=== PATIENT | female | born 1985 | race Asian ===

== ENCOUNTER → 2016-08-20 | Day surgery (SDC) | payer OTHER ==
[~2016-08-20] VITALS: Ht 160 cm; Wt 76.2 kg
[~2016-08-20] MED LIST: IODINE STRONG SOLN 15 ML BTL As Ordered ONE; KETOROLAC 60 MG/2 ML VIAL (J1885) As Ordered ONE; LIDOCAINE 2% INJ 100 MG/5 ML SDV (FOR ANES.) As Ordered ONE; LIDOCAINE W/EPINEPHRINE 1% 20ML VIAL As Ordered ONE; LR 1,000 ML IV SCH; MIDAZOLAM INJ 2 MG/2 ML VIAL (J2250) As Ordered ONE; ONDANSETRON 4MG/2ML VIAL (J2405) As Ordered ONE; PROPOFOL 200 MG/20 ML VIAL As Ordered ONE; dexameTHASONE 4 MG/ML 1ML VIAL (J1100) As Ordered ONE; fentaNYL 100 MCG/2 ML INJECTION (J3010) As Ordered ONE; trinessa PO
[2016-08-20 10:36] LABS: CONTROL LINE HCG INT CTR LINE PRESENT
[2016-08-20 13:47] VITALS: BP 117/72
--- NOTE | 2016-08-20 18:11 | RO ---
DATE OF PROCEDURE: 08/20/2016 PREPROCEDURE DIAGNOSIS: High-grade squamous intraepithelial lesion (HGSIL) and low-grade squamous intraepithelial lesion (LGSIL) of the cervix. POSTPROCEDURE DIAGNOSIS: High-grade squamous intraepithelial lesion (HGSIL) and low-grade squamous intraepithelial lesion (LGSIL) of the cervix. PROCEDURE: Loop electrosurgical excision procedure (LEEP) biopsy. SURGEON: Dr. Joslyn Bonilla PIPE STRIPPER: Dr. Carroll Chua ANESTHESIA: sedation and local injection with 1%lidocaine w/epinephrine CLINICAL SERVICE: SENIOR SYSTEMS PROGRAMMER INDICATION FOR OPERATION: Ruddy is a 30-year-old 0 who was found to have high-grade squamous intraepithelial lesion on her colposcopy at 6 o'clock on the surface of the cervix, as well as within the endocervical curettage and low-grade squamous intraepithelial lesion at 3 and 12 o'clock biopsy sites. MATERIAL FORWARDED TO THE LAB FOR EXAMINATION: 1. Superficial LEEP. 2. Deep LEEP. DESCRIPTION OF FINDINGS: Lugol's solution was applied to the cervix, and there was a non-uptake region in the central portion of the cervix. INFECTION CLASSIFICATION: 2. ESTIMATED BLOOD LOSS: 10 mL. LACTATED RINGER'S: 500 mL. URINE OUTPUT: Not recorded. DESCRIPTION OF PROCEDURE: After obtaining informed consent, the patient was taken to the operating room (OR) where she underwent intravenous (IV) sedation. She was placed in low lithotomy position and the perineum and vagina were prepped and draped in a sterile fashion. A coated speculum was placed within the vagina and the cervix was coated with Lugol's solution at which point the central portion could be noted to have non-uptake. 10ml of 1% lidocaine with epinephrine was used for an intracervical block. The LEEP was performed in one pass for the superficial portion and then a top hat was performed for a deeper portion. Electrocautery was applied to the LEEP bed with adequate hemostasis. Monsel's solution was applied with adequate hemostasis. Procedure was tolerated well and specimens will be sent to pathology. She was awakened from sedation and transferred to the post-anesthesia care unit (PACU) in good condition. All counts were correct. Vaginal sweep revealed nothing retained in the vagina. [facility]
== END | disposition home or self-care (01) ==
LOC: M SDC 09:52
PROVIDERS: ATTEND Obstetrics & Gynecology
DX: R87.613 High grade squamous intraepithelial lesion on cytologic smear of cervix (HGSIL) (principal); R87.612 Low grade squamous intraepithelial lesion on cytologic smear of cervix (LGSIL); K21.9 Gastro-esophageal reflux disease without esophagitis; Z87.891 Personal history of nicotine dependence
CPT/HCPCS: 36415; 57460; 84703; 85014; 85018; 86850; 86900; 86901; 88307; J1100; J1885; J2250; J2405; J3010